=== PATIENT | male | born 1965 | race African-American/Black ===

== ENCOUNTER 2017-01-16 15:51 | Emergency (ER) | payer OTHER ==
[~2017-01-16] VITALS: Ht 177.8 cm; Wt 90.7 kg
[2017-01-16 16:09] VITALS: BP 132/78
[2017-01-16] MEDS ORDERED: FLONASE ALLERG9.9 ML NS (16:18)
[2017-01-16] MEDS ORDERED: PROVENTIL HFA6.7 G1 IH (16:18)
[2017-01-16] MEDS ORDERED: ZYRTEC10 MG ORAL (16:18)
--- NOTE | 2017-01-16 16:18 | Emergency Room Report ---
History of Present Illness General Chief Complaint: Upper Respiratory Illness Source: Patient Present Illness HPI 51 y/o male c/o allergy sxs x several months. States that he has mold in his house that causes nasal congestion and post nasal drip causing coughing and wheezing. States he's taking albuterol inhaler with relief of respiratory sxs as needed but ran out and is requesting refill. Not taking medication for his nasal sxs. Denies any current n/v/f/c/d, abd pain, back pain, neck pain, photophobia, phonophobia, CP, SOB or headache. Allergies: Coded Allergies: TOMATO (Verified Allergy, Unknown, 01/16/17) Patient History Past Medical History: see triage record Past Surgical History: none Pertinent Family History: none Immunizations: UTD Reviewed Nursing Documentation: PMH: Agreed, PSxH: Agreed Nursing Documentation-PMH Past Medical History: No History, Except For Hx Hypertension: Yes Review of Systems All Other Systems: negative except mentioned in HPI Physical Exam Vital Signs Date Time Temp Pulse Resp B/P Pulse Ox O2 Delivery O2 Flow Rate FiO2 01/16/17 15:56 99.9 80 14 132/78 95 Room Air Sp02 EP Interpretation: reviewed, normal General Appearance: no apparent distress, alert, GCS 15, non-toxic Head: normocephalic, atraumatic Eyes: bilateral eye PERRL, bilateral eye normal inspection ENT: hearing grossly normal, normal pharynx, no angioedema, normal voice, TMs + canals normal, nasal congestion, other - turbinates boggy Neck: full range of motion, supple/symm/no masses Respiratory: chest non-tender, lungs clear, normal breath sounds, speaking full sentences Cardiovascular #1: regular rate, rhythm, no edema Musculoskeletal: gait/station normal Neurologic: alert, oriented x3, responsive, motor strength/tone normal, sensory intact, speech normal Psychiatric: judgement/insight normal, memory normal, mood/affect normal, no suicidal/homicidal ideation Skin: normal color, no rash, warm/dry, well hydrated Lymphatic: no adenopathy Medical Decision Making PA Attestation Dr. Ruano is my supervising physician with whom patient management has been discussed with. Diagnostic Impression: Primary Impression: Environmental allergies Additional Impression: Wheezing without diagnosis of asthma ER Course Pt. presents to the ED c/o of wheezing and congestion Ddx considered but are not limited to bronchitis, pneumonia, viral upper respiratory tract infection Vital signs: are WNL, pt. is afebrile H&PE are most consistent with environmental allergies w/o diagnosis of asthma ORDERS: none required at this time, the diagnosis is clinical ED INTERVENTIONS: None required at this time. DISCHARGE: At this time pt. is stable for d/c to home. Will provide printed patient care instructions, and any necessary prescriptions. Care plan and follow up instructions have been discussed with the patient prior to discharge. Last Vital Signs Date Time Temp Pulse Resp B/P Pulse Ox O2 Delivery O2 Flow Rate FiO2 01/16/17 16:37 99.9 80 14 132/78 95 Room Air Status: unchanged Disposition: HOME, SELF-CARE Condition: Stable Scripts Cetirizine Hcl* (ZYRTEC*) 10 Mg Tablet 10 MG ORAL DAILY, #14 TAB 0 Refills Prov: EMILY SAWANT.A. 01/16/17 Fluticasone Propionate (Flonase Allergy Relief) 9.9 Ml Regan.susp 2 SPRAYS NS DAILY for 7 Days, #10 ML Prov: EMILY SAWANT.A. 01/16/17 Albuterol Sulfate (PROVENTIL HFA) 6.7 Gm Hfa.aer.ad 2 INH IH Q6HR for 10 Days, #1 UNIT Prov: EMILY SAWANT.A. 01/16/17 Patient Instructions: Allergic Rhinitis Additional Instructions: Take medication as directed. Educated patient on rhinitis and encouraged patient to use OTC nasal decongestants, nasal irrigation / saline sprays, and use of nasal suction such as NoseFrida. Educated patient on the benefits of the various OTC medications available (ie. H1 blockers, decongestants, nasal steroids, etc.). If sxs worsen or don't improve, please return sooner. Go to the ER if you develop SOB, CP, Rash, photophobia, neck pain, throat swelling occur, go to the ER immediately.Take medication as directed. EMILY SAWANT Jan 16, 2017 16:18
[2017-01-16 16:37] VITALS: BP 132/78
== END 2017-01-16 16:35 | disposition home or self-care (01) ==
LOC: EMR 16:29
DX: T78.49XA Other allergy, initial encounter (principal); X58.XXXA Exposure to other specified factors, initial encounter; R06.2 Wheezing; Z91.018 Allergy to other foods; I10 Essential (primary) hypertension
CPT/HCPCS: 99284